=== PATIENT | male | born 1965 | race African-American/Black ===

== ENCOUNTER 2020-03-23 16:16 | Inpatient (IN) | payer MEDICAID ==
[~2020-03-23] VITALS: Ht 175.3 cm; Wt 106.5 kg
[~2020-03-23 16:16] MED LIST: AMLO-257 PO; ASPI-728 PO; ATOR40TA28 PO; BACTDSB PO; CARV25 PO; HYDR25TA84 PO; SACU1TAB PO
[2020-03-23] MEDS ORDERED: MethylPREDNISolone SOD SUCC 125 MG/2 ML VIAL IVP ONE (16:30)
[2020-03-23] MEDS ORDERED: FAMOTIDINE 10 MG/ML 2 ML VIAL IVP ONE (16:30)
[2020-03-23] MEDS ORDERED: DiphenhydrAMINE HCL 50 MG/ML VIAL IVP ONE (16:30)
[2020-03-23 16:58] LABS: BASOPHILS % (AUTO) 0.7 % (0.0-2.0); EOSINOPHILS % (AUTO) 4.5 % (1.0-6.0); HEMATOCRIT 49.6 % (41-53); HEMOGLOBIN 16.4 g/dL (13.5-17.5); LYMPHOCYTES # (AUTO) 2.2 K/uL (1.0-4.8); LYMPHOCYTES % (AUTO) 39.5 % (22.0-44.0); MEAN CORPUSCULAR HEMOGLOBIN 30.8 pg (26.0-34.0); MEAN CORPUSCULAR VOLUME 94 fL (80-100); MONOCYTES # (AUTO) 1.4 K/uL (0.1-1.0); MONOCYTES % (AUTO) 25.9 % (2.0-9.0); NEUTROPHILS # (AUTO) 1.6 K/uL (1.8-7.7); NEUTROPHILS % (AUTO) 29.4 % (40.0-70.0); PLATELET COUNT (AUTO) 291 K/uL (150-450); RED BLOOD CELL COUNT(AUTO) 5.31 MIL/uL (4.50-5.90); RED CELL DISTRIBUTION WIDTH 13.9 % (11.5-14.5)
[2020-03-23 17:12] LABS: CALCIUM, TOTAL 9.5 mg/dL (8.8-10.5); CREATININE 1.74 mg/dL (0.60-1.30); POTASSIUM 3.8 mmol/L (3.5-5.1)
[2020-03-23 17:16] LABS: PLATELET MORPHOLOGY COMMENT LARGE PLTS PRESENT
[2020-03-23 17:18] LABS: BILIRUBIN,TOTAL 0.2 mg/dL (0.1-1.0); TOTAL PROTEIN, SERUM 8.9 g/dL (6.4-8.2)
[2020-03-23] MEDS ORDERED: HydrALAZINE HCL 20 MG/ML VIAL IVP ONE (17:30)
[2020-03-23] MEDS ORDERED: VECURONIUM BROMIDE 10 MG/VIAL ONE (18:12)
[2020-03-23] MEDS ORDERED: PROPOFOL 1000 MG/ISO-OSM 100 ML IV ONE ×2 (18:17→19:48)
[2020-03-23] MEDS ORDERED: RINGERS SOLUTION,LACTATED 1,000 ML IV ONE (18:20)
[2020-03-23] MEDS ORDERED: GLYCOPYRROLATE 0.2 MG/ML VIAL IVP ONE (18:30)
[2020-03-23] MEDS ORDERED: 0.9% SODIUM CHLORIDE 10 ML SYRINGE IVP PRN (19:00)
[2020-03-23] MEDS ORDERED: BISACODYL 10 MG RECTAL RECTAL SUPPOSITORY PR PRN (19:00)
[2020-03-23] MEDS ORDERED: DILTIAZEM HCL 125 MG in DEXTROSE 5%-WATER 100 ML IV PRN (19:15)
[2020-03-23] MEDS ORDERED: DEXMEDETOMIDINE HCL 200 MCG in SODIUM CHLORIDE 0.9% 48 ML IV PRN (19:15)
[2020-03-23 19:23] LABS: BASOPHILS % (AUTO) 0.6 % (0.0-2.0); HEMATOCRIT 50.4 % (41-53); HEMOGLOBIN 17.1 g/dL (13.5-17.5); LYMPHOCYTES % (AUTO) 17.3 % (22.0-44.0); MEAN CORPUSCULAR HEMOGLOBIN 31.4 pg (26.0-34.0); MEAN CORPUSCULAR HGB CONC 33.8 G/dL (31.0-37.0); MEAN CORPUSCULAR VOLUME 93 fL (80-100); MONOCYTES # (AUTO) 0.4 K/uL (0.1-1.0); MONOCYTES % (AUTO) 7.6 % (2.0-9.0); NEUTROPHILS # (AUTO) 4.2 K/uL (1.8-7.7); NEUTROPHILS % (AUTO) 72.5 % (40.0-70.0); PLATELET COUNT (AUTO) 271 K/uL (150-450); RED BLOOD CELL COUNT(AUTO) 5.43 MIL/uL (4.50-5.90); RED CELL DISTRIBUTION WIDTH 13.9 % (11.5-14.5)
[2020-03-23 19:33] LABS: ALBUMIN 3.8 g/dL (3.4-5.0); BILIRUBIN,TOTAL 0.2 mg/dL (0.1-1.0); CALCIUM, TOTAL 9.2 mg/dL (8.8-10.5); CREATININE 1.76 mg/dL (0.60-1.30); POTASSIUM 4.1 mmol/L (3.5-5.1); TOTAL PROTEIN, SERUM 8.7 g/dL (6.4-8.2)
[2020-03-23] MEDS ORDERED: PROPOFOL 1000 MG/ISO-OSM 100 ML IV PRN (20:05)
[2020-03-23] MEDS ORDERED: NiCARDipine HCL 25 MG in DEXTROSE 5%-WATER 240 ML IV PRN (20:15)
[2020-03-23 20:18] LABS: SOURCE, BLOOD GAS ARTERIAL; TEMPERATURE, FAHRENHEIT, BG 98.6 FAHREN (96.0-98.6)
[2020-03-23 20:51] LABS: ABG A-A DIFF O2 245.7 mmHg (10-20.0); ABG BASE EXCESS -5.1 mmol/L (-2.0-3.0); ABG CARBOXYHEMOGLOBIN 0.3 % (0.0-1.5); ABG HCO3 20.9 mmol/L (22.0-26.0); ABG METHEMOGLOBIN 0.6 % (0.0-1.5); ABG OXYGEN CONTENT 24.7 mL/dL (15.0-23.0); ABG OXYGEN SATURATION 99.8 % (95.0-98.0); ABG OXYHEMOGLOBIN 98.9 % (94.0-100.0); ABG PCO2 38 mmHg (35-45); PO2, ARTERIAL BG 429.3 mmHg (84.0-92.0)
[2020-03-23] MEDS: CHLORHEXIDINE GLUCONATE 0.12% 15 ML UDCUP ORAL RINSE PO SCH (21:00)
[2020-03-23 21:12] LABS: O2 DEVICE,BLOOD GAS VENTILATOR (ROOM AIR); PEEP,BG 5 cm H2O; SITE, BLOOD GAS RT RADIAL; VT, ABG 500 ml
[2020-03-23] MEDS: DiphenhydrAMINE HCL 50 MG/ML VIAL IM SCH (21:13)
[2020-03-23] MEDS: CefTRIAXone 1 GM/DEXTROSE 50 ML IV SCH (21:13)
[2020-03-23] MEDS: SODIUM CHLORIDE 0.9% 1,000 ML IV SCH (21:34)
[2020-03-23] MEDS ORDERED: SODIUM CHLORIDE 0.9% 500 ML IV ONE (23:30)
[2020-03-23] MEDS: HEPARIN SODIUM,PORCINE 5,000 UNITS/ML VIAL SQ SCH (23:45)
[2020-03-24] MEDS: FentaNYL CITRATE PF 500 MCG in DEXTROSE 5%-WATER 90 ML IV PRN ×2 (00:45→14:45)
[2020-03-24] MEDS: MIDAZOLAM HCL 2 MG/2 ML VIAL IVP PRN (01:51)
[2020-03-24] MEDS ORDERED: SODIUM CHLORIDE 0.9% 500 ML IV ONE (03:45)
[2020-03-24] MEDS: CETIRIZINE HCL 10 MG TABLET NG SCH ×2 (04:31→08:25)
[2020-03-24] MEDS ORDERED: PHENYLEPHRINE 200 MG/D5%-WATER 250 ML IV PRN (04:37)
[2020-03-24 07:11] LABS: GLUCOSE,POINT OF CARE 106 MG/DL (70-110)
[2020-03-24] MEDS: HEPARIN SODIUM,PORCINE 5,000 UNITS/ML VIAL SQ SCH ×3 (07:27→23:18)
[2020-03-24 07:34] LABS: BASOPHILS % (AUTO) 0.2 % (0.0-2.0); EOSINOPHILS % (AUTO) 0.1 % (1.0-6.0); HEMATOCRIT 40.2 % (41-53); HEMOGLOBIN 13.3 g/dL (13.5-17.5); LYMPHOCYTES # (AUTO) 0.7 K/uL (1.0-4.8); MEAN CORPUSCULAR HEMOGLOBIN 31.1 pg (26.0-34.0); MEAN CORPUSCULAR VOLUME 94 fL (80-100); MONOCYTES # (AUTO) 0.5 K/uL (0.1-1.0); MONOCYTES % (AUTO) 6.6 % (2.0-9.0); NEUTROPHILS % (AUTO) 83.1 % (40.0-70.0); PLATELET COUNT (AUTO) 249 K/uL (150-450); RED BLOOD CELL COUNT(AUTO) 4.27 MIL/uL (4.50-5.90); RED CELL DISTRIBUTION WIDTH 14.3 % (11.5-14.5)
[2020-03-24 07:43] LABS: CREATININE 2.91 mg/dL (0.60-1.30); MAGNESIUM 1.6 mg/dL (1.80-2.40)
[2020-03-24 07:51] LABS: POTASSIUM 6.1 mmol/L (3.5-5.1)
[2020-03-24] MEDS ORDERED: SODIUM POLYSTYRENE SULFONATE 15 GM/60 ML SUSPENSION BOTTLE PO ONE ×2 (08:00→09:00)
[2020-03-24] MEDS: DiphenhydrAMINE HCL 50 MG/ML VIAL IM SCH (08:34)
[2020-03-24] MEDS: FAMOTIDINE 10 MG/ML 2 ML VIAL IVP SCH (08:34)
[2020-03-24] MEDS: MethylPREDNISolone SOD SUCC 125 MG/2 ML VIAL IVP SCH (08:35)
[2020-03-24] MEDS: CHLORHEXIDINE GLUCONATE 0.12% 15 ML UDCUP ORAL RINSE PO SCH ×2 (08:35→21:54)
[2020-03-24] MEDS ORDERED: INSULIN REGULAR, HUMAN 100 UNITS/ML IVP ONE (09:00)
[2020-03-24] MEDS ORDERED: SODIUM BICARBONATE [ADULT] 8.4% 50 MEQ/50 ML SYRINGE IVP ONE (09:00)
[2020-03-24] MEDS ORDERED: DEXTROSE 50%-WATER 25 GM/50 ML SYRINGE IVP ONE (09:00)
[2020-03-24] MEDS ORDERED: CETIRIZINE HCL 10 MG TABLET NG SCH (09:00)
[2020-03-24 09:45] VITALS: BP 110/80
[2020-03-24 10:00] VITALS: BP 102/63
[2020-03-24] MEDS: SODIUM CHLORIDE 0.9% 1,000 ML IV SCH ×2 (10:59→23:18)
[2020-03-24 12:00] VITALS: BP 104/68
[2020-03-24 12:27] LABS: GLUCOSE,POINT OF CARE 144 MG/DL (70-110)
[2020-03-24 12:27] LABS: GLUCOSE,POINT OF CARE 114 MG/DL (70-110)
[2020-03-24 16:00] VITALS: BP 146/109
[2020-03-24 16:08] LABS: CALCIUM, TOTAL 8.5 mg/dL (8.8-10.5); CREATININE 2.38 mg/dL (0.60-1.30); POTASSIUM 5.2 mmol/L (3.5-5.1)
[2020-03-24 16:11] LABS: MAGNESIUM 2.1 mg/dL (1.80-2.40); PHOSPHORUS 4.3 mg/dL (2.5-4.9)
[2020-03-24] MEDS: DiphenhydrAMINE HCL 50 MG/ML VIAL IVP SCH ×2 (16:16→23:18)
[2020-03-24] MEDS: HydrALAZINE HCL 20 MG/ML VIAL IVP PRN (18:42)
[2020-03-24 20:00] VITALS: BP 165/92
[2020-03-24 20:19] LABS: APPEARANCE,URINE CLEAR (CLEAR); BILIRUBIN,URINE NEGATIVE (NEGATIVE); GLUCOSE, URINE (UA) NEGATIVE (NEGATIVE); KETONES,URINE NEGATIVE (NEGATIVE); LEUKOCYTE ESTERASE ,URINE NEGATIVE (NEGATIVE); NITRATE,URINE NEGATIVE (NEGATIVE); OCCULT BLOOD,URINE NEGATIVE (NEGATIVE); PROTEIN,URINE NEGATIVE (NEGATIVE); UROBILINOGEN,URINE 0.2 mg/dL (<=1.0)
[2020-03-24 20:21] LABS: CREATININE,URINE RANDOM 199.7 mg/dL (30.0-125.0); SODIUM,URINE RANDOM 34 mmol/l (20-110); UREA NITROGEN,URINE RANDOM 1194 mg/dL (350-1000)
[2020-03-24] MEDS: CefTRIAXone 1 GM/DEXTROSE 50 ML IV SCH (20:23)
[2020-03-24 20:25] LABS: BACTERIA,URINE None Seen /HPF (None Seen); RBC,URINE 0-2 /HPF (0-2)
[2020-03-24 20:26] LABS: SQUAMOUS EPITHELIAL CELL,UR Rare /LPF (None Seen); WBC,URINE 0-2 /HPF (0-5)
[2020-03-24] MEDS ORDERED: DILTIAZEM HCL 5 MG/ML 5 ML VIAL IVP ONE (22:15)
[2020-03-25] VITALS (8 sets, daily range): BP systolic 140–173; BP diastolic 88–120
[2020-03-25] MEDS: FentaNYL CITRATE PF 500 MCG in DEXTROSE 5%-WATER 90 ML IV PRN (00:16)
[2020-03-25] MEDS: HydrALAZINE HCL 20 MG/ML VIAL IVP PRN ×2 (00:17→16:21)
[2020-03-25] MEDS: MIDAZOLAM HCL 2 MG/2 ML VIAL IVP PRN ×2 (01:16→11:06)
[2020-03-25] MEDS: CHLORHEXIDINE GLUCONATE 0.12% 15 ML UDCUP ORAL RINSE PO SCH (09:06)
[2020-03-25] MEDS: FAMOTIDINE 10 MG/ML 2 ML VIAL IVP SCH (09:06)
[2020-03-25] MEDS: MethylPREDNISolone SOD SUCC 125 MG/2 ML VIAL IVP SCH (09:07)
[2020-03-25] MEDS: HEPARIN SODIUM,PORCINE 5,000 UNITS/ML VIAL SQ SCH ×2 (09:07→16:21)
[2020-03-25] MEDS: CETIRIZINE HCL 10 MG TABLET NG SCH (09:07)
[2020-03-25] MEDS: DiphenhydrAMINE HCL 50 MG/ML VIAL IVP SCH ×2 (09:07→16:20)
[2020-03-25 11:11] LABS: ABG A-A DIFF O2 66.2 mmHg (10-20.0); ABG CARBOXYHEMOGLOBIN 0.6 % (0.0-1.5); ABG HCO3 23.4 mmol/L (22.0-26.0); ABG METHEMOGLOBIN 0.1 % (0.0-1.5); ABG OXYGEN CONTENT 22.1 mL/dL (15.0-23.0); ABG OXYGEN SATURATION 99.1 % (95.0-98.0); ABG OXYHEMOGLOBIN 98.4 % (94.0-100.0); ABG PCO2 28 mmHg (35-45); ABG TOTAL HEMOGLOBIN 15.8 G/dL (12.0-18.0); SOURCE, BLOOD GAS ARTERIAL
[2020-03-25 11:29] LABS: O2 DEVICE,BLOOD GAS VENTILATOR (ROOM AIR); PEEP,BG 0 cm H2O; PRESSURE SUPPORT, BG 8 cm H2O; SITE, BLOOD GAS LFT RADIAL; SPONTANEOUS VT, BG 1312 ml; VENT MODE, BG CPAP (ROOM AIR)
[2020-03-25] MEDS ORDERED: AmLODIPine BESYLATE 5 MG TABLET PO SCH (13:15)
[2020-03-25] MEDS ORDERED: METOPROLOL SUCCINATE 50 MG ER TABLET PO SCH (13:15)
[2020-03-25] MEDS ORDERED: HydrALAZINE HCL 20 MG/ML VIAL IVP PRN (17:45)
[2020-03-25] MEDS ORDERED: AmLODIPine BESYLATE 5 MG TABLET PO ONE (17:45)
[2020-03-25] MEDS: CefTRIAXone 1 GM/DEXTROSE 50 ML IV SCH (20:06)
[2020-03-25] MEDS ORDERED: SODIUM CHLORIDE 0.9% 250 ML IV ONE (20:07)
[2020-03-26] MEDS: DiphenhydrAMINE HCL 50 MG/ML VIAL IVP SCH
[2020-03-26] MEDS: HEPARIN SODIUM,PORCINE 5,000 UNITS/ML VIAL SQ SCH
[2020-03-26 04:47] VITALS: BP 158/95
[2020-03-26 05:56] LABS: ANION GAP 5 mmol/L (8-16); CALCIUM, TOTAL 8.4 mg/dL (8.8-10.5); CARBON DIOXIDE 29 mmol/L (22-29); CHLORIDE 109 mmol/L (98-107); CREATININE 1.39 mg/dL (0.60-1.30); GLOMERULAR FILTR. RATE CALC > 60 mL/min (>60); GLUCOSE,RANDOM 89 mg/dL (70-110); PHOSPHORUS 2.6 mg/dL (2.5-4.9); POTASSIUM 3.8 mmol/L (3.5-5.1); SODIUM SERUM 143 mmol/L (136-145); UREA NITROGEN, BLOOD 27 mg/dL (7-18)
[2020-03-26 07:04] VITALS: BP 157/82
[2020-03-26] MEDS ORDERED: HydrALAZINE HCL 25 MG TABLET PO SCH (08:15)
[2020-03-26] MEDS ORDERED: PredniSONE 20 MG TABLET PO SCH (09:00)
[2020-03-26] MEDS ORDERED: AmLODIPine BESYLATE 10 MG TABLET PO SCH (09:00)
== END 2020-03-26 08:12 | disposition left against medical advice (07) | DRG 811 ==
LOC: EMS 16:16 → ICUN 18:44 → ICU 03-24 08:55 → 5S 03-25 23:20
PROVIDERS: ADMIT Internal Medicine; ATTEND Internal Medicine
PROC: 5A1945Z Respiratory Ventilation, 24-96 Consecutive Hours (ICD-10-PCS; principal; 2020-03-23)
PROC: 0BH17EZ Insertion of Endotracheal Airway into Trachea, Via Natural or Artificial Opening (ICD-10-PCS; 2020-03-23)
DX: T78.3XXA Angioneurotic edema, initial encounter (principal); J96.00 Acute respiratory failure, unspecified whether with hypoxia or hypercapnia; I16.0 Hypertensive urgency; R00.0 Tachycardia, unspecified; I50.22 Chronic systolic (congestive) heart failure; E87.5 Hyperkalemia; N17.0 Acute kidney failure with tubular necrosis; I13.0 Hypertensive heart and chronic kidney disease with heart failure and stage 1 through stage 4 chronic kidney disease, or unspecified chronic kidney disease; N18.9 Chronic kidney disease, unspecified; E66.9 Obesity, unspecified; T46.4X5A Adverse effect of angiotensin-converting-enzyme inhibitors, initial encounter; Z20.828 Contact with and (suspected) exposure to other viral communicable diseases; Z88.8 Allergy status to other drugs, medicaments and biological substances; Z79.899 Other long term (current) drug therapy; Z79.82 Long term (current) use of aspirin; Z68.34 Body mass index [BMI] 34.0-34.9, adult; Y92.89 Other specified places as the place of occurrence of the external cause
CPT/HCPCS: 36600; 76770; 82570; 82805; 83605; 83735; 84100; 84132; 84300; 84478; 84540; 87081; 93005; 94002; 94003; 99291; G0378; J0360; J0696; J1200; J1644; J1815; J2250; J2370; J2704; J2930; J3010; J3490; J7030; J7050; J7060; J7120; 36415-L1; 36415-TC; 71045-TC; U0003-CS